=== PATIENT | female | born 1960 | race Caucasian/White ===

== ENCOUNTER 2016-11-15 11:20 | Emergency (ER) | payer OTHER ==
--- NOTE | 2016-11-15 11:34 | CPEKG ---
Heart Rate: 67 RR Interval: 896 P-R Interval: 140 QRSD Interval: 82 QT Interval: 400 QTC Interval: 423 P [place]: 35 QRS [place]: 23 T Wave [place]: 33 EKG Severity - NORMAL ECG - EKG Impression: SINUS RHYTHM Electronically Signed By: Kiet Umanzor 17-Nov-2016 11:23:53
[2016-11-15 11:37] VITALS: TEMP 98.1
[2016-11-15] MEDS ORDERED: ASPIRIN 81 MG CHEWABLE TAB PO ONE (11:39)
--- NOTE | 2016-11-15 11:50 | EDPHY ---
H & P Time Seen by Provider: 11/15/16 11:38 HPI/ROS: CHIEF COMPLAINT: Chest pain HISTORY OF PRESENT ILLNESS: The patient is a 56-year-old female who presents emergency department with chest pain. The patient was in a yoga sculpt class when she developed pain. It is left-sided chest pain. It radiated to her back and her left shoulder. It lasted for about 15-20 minutes and then resolved. No chest pain current. She denies shortness of breath, nausea, vomiting, diaphoresis. She has had no leg pain or swelling. No recent illnesses. No cough. The patient states that she had a normal echo and stress test in March at [facility]. REVIEW OF SYSTEMS: My complete review of systems is negative except as mentioned in the HPI. Past Medical/Surgical History: Includes hypertension, high cholesterol Past surgical history: ACL repair, meniscus repair, knee replacement, appendectomy Social history: The patient does not smoke. Family history: Patient's grandfather had coronary artery disease. Smoking Status: Never smoked Physical Exam: 36.7, 140/87, 60, 16, 95% room air GENERAL: Well-appearing, in no acute distress, alert. HEENT: Eyes normal to inspection, normal pharynx, no signs of dehydration. NECK: No thyromegaly, no lymphadenopathy, supple. RESPIRATORY: Clear to auscultation bilaterally, no rales, rhonchi or wheezing. CVS: Regular rate and rhythm, no rubs, murmurs, or gallops. ABDOMEN: Soft, nontender, nondistended, no organomegaly. BACK: Normal to inspection, no CVA tenderness. SKIN: Normal color, no rash, warm, dry. No pallor. EXTREMITIES: No pedal edema, no calf tenderness, no Homans sign or cords, no joint swelling. NEURO/PSYCH: Alert and oriented x3, normal mood and affect, normal motor sensory exam. Constitutional: Initial Vital Signs Temperature (C) 36.7 C 11/15/16 11:33 Heart Rate 68 11/15/16 11:33 Respiratory Rate 16 11/15/16 11:33 Blood Pressure 140/87 H 11/15/16 11:33 O2 Sat (%) 95 11/15/16 11:33 O2 Delivery Mode Room Air Allergies/Adverse Reactions: vancomycin Allergy (Verified 11/15/16 11:29) Home Medications: Medication Instructions Recorded Atorvastatin Calcium [Lipitor 10 5 mg PO DAILY 04/17/11 mg (*)] Fluticasone Nasal [Flonase Nasal 1 sprays NASAL DAILY 04/17/11 [place]] Fluticasone/Salmeter 100/50Mcg 1 inh IH DAILY 04/17/11 [Advair 100/50 (*)] FLUoxetine [Prozac 20 MG (*)] 20 mg PO DAILY 01/15/14 buPROPion SR [Wellbutrin 150mg SR 150 mg PO DAILY 01/15/14 (*)] Calcium Carb W/Vit D [Calcium Carb 500 mg PO TIDMEAL 01/22/14 W/Vit D 500/200 (*)] Herbals/Supplements -Info Only 1 ea PO DAILY 01/22/14 Rizatriptan Benzoate [Rizatriptan] 10 mg PO DAILY PRN 01/22/14 SUMAtriptan [Imitrex 50 MG (*)] 100 mg PO Q2H PRN 01/22/14 Zolpidem Tartrate [Ambien 5MG (*)] 10 mg PO HS 01/22/14 Abilify 11/15/16 Lipitor 11/15/16 Lisinopril 11/15/16 Medical Decision Making ED Course/Re-evaluation: In the emergency department I discussed possible etiologies with the patient. I answered all her questions. IV was placed. Laboratory studies, EKG and chest x-ray were ordered. Patient was given aspirin 324 mg orally. EKG shows normal sinus rhythm, normal rate, normal axis, normal intervals. There are no ST or T-wave abnormalities. EKG is normal as interpreted by me. Laboratory studies are normal. Troponin is negative. I discussed the case with Cardiology. They recommended a repeat troponin at 3 hours. 1305: Patient states she had mild chest discomfort. Repeat EKG was ordered. I ordered a GI cocktail. On recheck the patient states her chest pain had resolved. EKG shows normal sinus rhythm, normal rate, normal axis, normal intervals. There are no ST or T-wave abnormalities. EKG is normal as interpreted by me. Because the patient has recurrence of chest pain while in the emergency department I feel she needs further evaluation and observation. Patient does not want to be admitted to [facility]. She requested [place]. I discussed the case with Dick Lynch. I spoke Dr. Han who accepted the patient to [facility]. I discussed the plan with the patient. Her is physician. They do not want transfer by ambulance. They will go by private vehicle. They understands the risks and benefits this. They understand why I recommended the patient be transferred in ambulance. The patient has normal capacity to make this decision. IV will be kept in place. [facility] was informed. Repeat troponin is negative. Differential Diagnosis: My differential includes but is not limited to ACS, acute SD, pneumonia, bronchitis, pneumothorax, reflux, PE - Data Points Laboratory Results: Laboratory Results 11/15/16 11:50 11/15/16 11:50 11/15/16 11/15/16 11/15/16 13:25 11:50 11:50 WBC 5.32 10^3/uL 10^3/uL (3.80-9.50) RBC 4.55 10^6/uL 10^6/uL (4.18-5.33) Hgb 13.5 g/dL g/dL (12.6-16.3) Hct 40.3 % % (38.0-47.0) MCV 88.6 fL fL (81.5-99.8) MCH 29.7 pg pg (27.9-34.1) MCHC 33.5 g/dL g/dL (32.4-36.7) RDW 13.0 % % (11.5-15.2) Plt Count 301 10^3/uL 10^3/uL (150-400) MPV 9.3 fL fL (8.7-11.7) Neut % (Auto) 64.3 % % (39.3-74.2) Lymph % (Auto) 24.8 % % (15.0-45.0) Ocean % (Auto) 7.3 % % (4.5-13.0) Eos % (Auto) 2.6 % % (0.6-7.6) Baso % (Auto) 0.6 % % (0.3-1.7) Nucleat RBC Rel Count 0.0 % % (0.0-0.2) Absolute Neuts (auto) 3.42 10^3/uL 10^3/uL (1.70-6.50) Absolute Lymphs (auto) 1.32 10^3/uL 10^3/uL (1.00-3.00) Absolute Monos (auto) 0.39 10^3/uL 10^3/uL (0.30-0.80) Absolute Eos (auto) 0.14 10^3/uL 10^3/uL (0.03-0.40) Absolute Basos (auto) 0.03 10^3/uL 10^3/uL (0.02-0.10) Absolute Nucleated RBC 0.00 10^3/uL 10^3/uL (0-0.01) Immature Gran % 0.4 % % (0.0-1.1) Immature Gran # 0.02 10^3/uL 10^3/uL (0.00-0.10) PT INR APTT D-Dimer Sodium 141 mEq/L mEq/L (134-144) Potassium 3.9 mEq/L mEq/L (3.5-5.2) Chloride 106 mEq/L mEq/L (97-110) Carbon Dioxide 22 mEq/l mEq/l (22-31) Anion Gap 13 mEq/L mEq/L (8-16) BUN 18 mg/dL mg/dL (7-23) Creatinine 0.9 mg/dL mg/dL (0.6-1.0) Estimated GFR > 60 Glucose 92 mg/dL mg/dL (70-100) Calcium 9.6 mg/dL mg/dL (8.5-10.4) Total Bilirubin 0.6 mg/dL mg/dL (0.1-1.4) Conjugated Bilirubin 0.4 mg/dL mg/dL (0.0-0.5) Unconjugated Bilirubin 0.2 mg/dL mg/dL (0.0-1.1) AST 16 IU/L IU/L (14-46) ALT 33 IU/L IU/L (9-52) Alkaline Phosphatase 47 IU/L IU/L (38-126) Troponin I < 0.012 ng/mL ng/mL < 0.012 ng/mL ng/mL (0.000-0.034) (0.000-0.034) Total Protein 6.5 g/dL g/dL (6.3-8.2) Albumin 3.9 g/dL g/dL (3.5-5.0) Lipase 103 IU/L IU/L (23-300) 11/15/16 11:50 WBC RBC Hgb Hct MCV MCH MCHC RDW Plt Count MPV Neut % (Auto) Lymph % (Auto) [place] % (Auto) Eos % (Auto) Baso % (Auto) Nucleat RBC Rel Count Absolute Neuts (auto) Absolute Lymphs (auto) Absolute Monos (auto) Absolute Eos (auto) Absolute Basos (auto) Absolute Nucleated RBC Immature Gran % Immature Gran # PT 12.7 SEC SEC (12.0-15.0) INR 0.98 (0.83-1.16) APTT 24.5 SEC SEC (23.0-38.0) D-Dimer < 0.27 ug/mLFEU ug/mLFEU (0.00-0.50) Sodium Potassium Chloride Carbon Dioxide Anion Gap BUN Creatinine Estimated GFR Glucose Calcium Total Bilirubin Conjugated Bilirubin Unconjugated Bilirubin AST ALT Alkaline Phosphatase Troponin I Total Protein Albumin Lipase Medications Given: Discontinued Medications Al Hydroxide/Mg Hydroxide (Maalox Susp) 30 ml PO ONCE ONE Stop: 11/15/16 13:09 Last Admin: 11/15/16 13:17 Dose: 30 ml Aspirin (Aspirin) 324 mg PO EDNOW ONE Stop: 11/15/16 11:40 Last Admin: 11/15/16 11:44 Dose: 324 mg Lidocaine (Lidocaine 2% Viscous) 15 ml PO ONCE ONE Stop: 11/15/16 13:09 Last Admin: 11/15/16 13:17 Dose: 15 ml Departure - Departure Disposition: [facility] Clinical Impression: Chest pain Qualifiers: Chest pain type: intercostal pain Qualified Code(s): R07.82 - Intercostal pain Condition: Good Referrals: Davida Mercado MD [Primary Care Provider] - As per Instructions
[2016-11-15 12:05] LABS: % IMMATURE GRANULYOCYTES 0.4 % (0.0-1.1); ABSOLUTE IMMATURE GRANULOCYTES 0.02 10^3/uL (0.00-0.10); ADD DIFF? NO; ADD MORPH? NO; ADD SCAN? NO; ATYPICAL LYMPHOCYTE FLAG 10 (0-99); FRAGMENT RBC FLAG 0 (0-99); HEMATOCRIT 40.3 % (38.0-47.0); HEMOGLOBIN 13.5 g/dL (12.6-16.3); LEFT SHIFT FLG 0 (0-99); LIPEMIA HEMOLYSIS FLAG 80 (0-99); MEAN CELL HEMOGLOBIN 29.7 pg (27.9-34.1); MEAN CELL HEMOGLOBIN CONCENTR. 33.5 g/dL (32.4-36.7); MEAN CELL VOLUME 88.6 fL (81.5-99.8); MEAN PLATELET VOLUME 9.3 fL (8.7-11.7); PLATELET CLUMPS FLAG 0 (0-99); PLATELET COUNT 301 10^3/uL (150-400); RED BLOOD CELL COUNT 4.55 10^6/uL (4.18-5.33)
[2016-11-15 12:17] LABS: INR 0.98 (0.83-1.16); PROTIME(PATIENT) 12.7 SEC (12.0-15.0)
[2016-11-15 12:18] LABS: APTT 24.5 SEC (23.0-38.0)
[2016-11-15 12:19] LABS: ALANINE AMINOTRANSFERASE 33 IU/L (9-52); ALBUMIN 3.9 g/dL (3.5-5.0); ALKALINE PHOSPHATASE 47 IU/L (38-126); ANION GAP 13 mEq/L (8-16); ASPARTATE AMINOTRANSFERASE 16 IU/L (14-46); BILIRUBIN,TOTAL 0.6 mg/dL (0.1-1.4); BILIRUBIN-CONJUGATED 0.4 mg/dL (0.0-0.5); BILIRUBIN-UNCONJUGATED 0.2 mg/dL (0.0-1.1); CALCIUM 9.6 mg/dL (8.5-10.4); CARBON DIOXIDE 22 mEq/l (22-31); CHLORIDE 106 mEq/L (97-110); CREATININE 0.9 mg/dL (0.6-1.0); GLOMERULAR FILTRATION RATE > 60; GLUCOSE 92 mg/dL (70-100); POTASSIUM 3.9 mEq/L (3.5-5.2); SODIUM 141 mEq/L (134-144); TOTAL PROTEIN 6.5 g/dL (6.3-8.2)
[2016-11-15 12:32] LABS: TROPONIN I < 0.012 ng/mL (0.000-0.034)
[2016-11-15] MEDS ORDERED: MAG HYDROX/AL HYDROX/SIMETH 30 ML UDCUP PO ONE (13:08)
[2016-11-15] MEDS ORDERED: LIDOCAINE 2% VISCOUS 15 ML UDCUP PO ONE (13:08)
--- NOTE | 2016-11-15 13:12 | CPEKG ---
Heart Rate: 59 RR Interval: 1017 P-R Interval: 140 QRSD Interval: 82 QT Interval: 436 QTC Interval: 432 P [place]: 40 QRS [place]: 32 T Wave [place]: 32 EKG Severity - NORMAL ECG - EKG Impression: SINUS RHYTHM Electronically Signed By: Kiet Umanzor 17-Nov-2016 11:23:47
[2016-11-15 16:09] VITALS: BP 137/93; PULSE 67; RESP 16; O2SAT 96
== END 2016-11-15 14:55 | disposition short-term general hospital (02) ==
LOC: CED 11:20
DX: R07.82 Intercostal pain (principal); I10 Essential (primary) hypertension
CPT/HCPCS: 80048-PO; 80076-PO; 83690-PO; 84484-PO; 85025-PO; 85378-PO; 85610-PO; 85730-PO